=== PATIENT | female | born 1955 | race Asian ===

== ENCOUNTER 2018-11-23 18:02 | Inpatient (IN) | payer OTHER, BC ==
[~2018-11-23] VITALS: Ht 157.5 cm; Wt 60.3 kg
--- NOTE | 2018-11-23 18:22 | NUR ---
PT BROUGHT TO ED BY C/O CHEST PAIN X1 WEEK. PT REPORTS INTERMITTENT SHARP CHEST PAIN TO CENTER OF CHEST WITH EPISODES OF SOB. PER PT HAD LOWER BACK SURGERY 10/13/18 AT [facility] AND WAS TAKING OXYCODONE BY STOPPED TAKING IT APPROX 3 WEEKS AGO. PT DENIES ANY CHEST PAIN AT THIS TIME. PT AA/O X4, RESPS EVEN AND UNLABORED, LUNG SOUNDS CLEAR, SKIN WARM/DRY TO TOUCH, ABDOMEN SOFT/FLAT, NO S/S OF DISTRESS NOTED.
--- NOTE | 2018-11-23 18:30 | NUR ---
MSE COMPLETED BY DR. HARRINGTON.
[2018-11-23 18:32] LABS: BASOPHIL % 0.6 % (0-2)
[2018-11-23 18:33] LABS: PLATELET COUNT 447 x10^3mcL (130-400); RED CELL DISTRIBUTION WIDTH 15.5 % (11.5-14.5)
[2018-11-23 18:36] LABS: CARBON DIOXIDE 27.1 mmol/L (21-32); CHLORIDE SERUM 104 mmol/L (98-107); CREATININE SERUM 0.5 mg/dL (0.6-1.0); GFR1 > 60 mL/min; GLUCOSE SERUM 97 mg/dL (74-106); POTASSIUM SERUM 3.6 mmol/L (3.5-5.1); SODIUM SERUM 139 mmol/L (136-145)
--- NOTE | 2018-11-23 18:40 | NUR ---
PORTABLE X-RAY IN PROGRESS AT BEDSIDE.
[2018-11-23 18:41] LABS: ALBUMIN 3.5 g/dL (3.4-5.0); ALKALINE PHOSPHATASE 108 U/L (46-116); ALT/SGPT 18 U/L (14-59); AST/SGOT 12 U/L (15-37); BILIRUBIN TOTAL 0.36 mg/dL (0.20-1.00); TOTAL PROTEIN, SERUM 7.3 g/dL (6.4-8.2)
--- NOTE | 2018-11-23 19:13 | NUR ---
REPORT GIVEN TO DEON MORENO.
--- NOTE | 2018-11-23 19:14 | NUR ---
REPORT RECEIVED FROM MODESTA MORENO
--- NOTE | 2018-11-23 19:21 | NUR ---
MD HARRINGTON UPDATED THAT PT TAKES AMLODIPINE, LOSARTIN AND ASPIRIN DAILY "FOR MY BLOOD PRESSURE".
--- NOTE | 2018-11-23 20:08 | NUR ---
SON AT BEDSIDE
--- NOTE | 2018-11-23 20:18 | NUR ---
AWAITING RESULTS OF CT ANGIO TO RULE OUT PE. PT MADE AWARE WE ARE WAITING FOR THOSE RESULTS. NO DISTRESS AT THIS TIME
--- NOTE | 2018-11-23 21:02 | NUR ---
REPORT CALLED TO LETTY MORENO
[2018-11-23 21:21] LABS: CHOLESTEROL/HDL RATIO 3.3; MAGNESIUM 2.1 mg/dL (1.8-2.4); PHOSPHOROUS 3.6 mg/dL (2.5-4.9)
--- NOTE | 2018-11-23 21:40 | NUR ---
RECEIVED PT FROM ED VIA [employer], CAME IN DUE TO CHEST PAIN X1 WEEK. AAOX4. DENIES HEADACHE/DIZZINESS. NO SOB NOTED, LUNG SOUNDS CTA. DENIES CHEST PAIN/PRESSURE, SR ON THE MONITOR. DENIES ABDOMINAL DISCOMFORT, LAST BM=11/23/18. ABDOMEN IS SOFT. C/O MILD BURNING SENSATION ON URINATION. C/O 2/10 LOWER BACK PAIN, PT STATED THAT SHE DOES NOT NEED PAIN MEDICATION AT THIS TIME. W/ LOWER BACK SCAR/DARK DISCOLORATION,MECHANICAL ENGINEERING MANAGER. IV SITE ON THE RAC GAUGE 20 IS PATENT AND INTACT. SIDE RAILS UPX2. CALL LIGHT ON REACH. PT'S AND SON AT BEDSIDE. ENDORSED TO PRIMARY NURSE LETTY FOR CONTINUITY OF CARE
--- NOTE | 2018-11-23 21:52 | NUR ---
PT TAKEN UPSTAIRS BY KEN MORENO AND PAULA ARGUELLES AND CONTINUATION OF CARE BY LETTY MORENO FAMILY SENT UPSTAIRS WITH PT. NO DISTRESS UPON TRANSPORT
[2018-11-23 21:57] VITALS: BP 165/77
[2018-11-23] MEDS ORDERED: ROBAXIN-750750 MG PO (22:01)
[2018-11-23] MEDS ORDERED: NOR5 PO (22:01)
[2018-11-23] MEDS ORDERED: HYDROXYZINE HYD25 MG PO (22:01)
[2018-11-23] MEDS ORDERED: LOSARTAN POTASS50 M1 PO (22:02)
[2018-11-23] MEDS ORDERED: ASPIR LOW81 MG PO (22:02)
[2018-11-23 22:09] VITALS: Ht 157.5 cm; Wt 60.3 kg
--- NOTE | 2018-11-23 22:18 | NUR ---
BEDSIDE HANDS OFF AND INTRODUCTION PERFORMED WITH RESOURCE NURSE REYES, PATIENT IS ALERT AND ORIENTED X4, IN NO DISTRESS. PAT IENT AND FAMILY ACQUIANTED TO BEDSIDE EQUIPMENTS AND UNIT POLICIES, CALL LIGHT PLACED IN REACH AND SAFETY/FALL PRECAUTIONS INITIATED.WILL CONTINUE TO MONITOR.
[2018-11-23 22:49] VITALS: BP 144/88
--- NOTE | 2018-11-23 22:49 | NUR ---
PATIENT REQUESTED FOR PILL FOR SLEEP, MEDICATED WITH AMBIEN PER ORDERED. WILL CHECK EFFECTIVENESS.
[2018-11-23 23:12] LABS: UA SPECIFIC GRAVITY <=1.005 (1.005-1.035); microscopic required? YES; urine erythrocyte NEGATIVE (NEGATIVE)
--- NOTE | 2018-11-24 01:00 | NUR ---
PATIENT SLEEPING QUIETLY AND COMFORTABLY THIS TIME NO DISTRESS. WILL CONTINUE TO MONITOR.
[2018-11-24 06:03] VITALS: BP 113/45
--- NOTE | 2018-11-24 06:32 | NUR ---
PATIENT STATED HAD A RESTFUL AND QUIET NIGHT, DENIED CHEST PAINS DURING THE SHIFT, INFORMED PATIENT THIS AM ABOUT TO BE SEEN BY CARDIOLOGY THIS AM AND ECHO WILL BE DONE ALSO.DENIED CHEST PAINS DURING THE SHIFT, NSR ON THE MONITOR. AMBULATORY TO THE BATHROOM WITH STEADY GAIT. VOIDED WITHOUT DIFF. SAFETY PRECAUTIONS MAINTAINED. WILL ENDORSE CONTINUITY OF CARE TO INCOMING NURSE.
[2018-11-24 06:39] LABS: PLATELET COUNT 394 x10^3mcL (130-400)
[2018-11-24 06:48] LABS: CALCIUM 8.7 mg/dL (8.5-10.1); CARBON DIOXIDE 27.4 mmol/L (21-32); CHLORIDE SERUM 106 mmol/L (98-107); CREATININE SERUM 0.6 mg/dL (0.6-1.0); GFR1 > 60 mL/min; GLUCOSE SERUM 87 mg/dL (74-106); POTASSIUM SERUM 3.3 mmol/L (3.5-5.1); SODIUM SERUM 142 mmol/L (136-145)
[2018-11-24 06:55] LABS: RED CELL DISTRIBUTION WIDTH 15.4 % (11.5-14.5)
--- NOTE | 2018-11-24 07:20 | NUR ---
BEDSIDE HANDS OFF REPORT AND INTRODUCTION PERFORMED WITH INCOMING NURSE PEREZ.
--- NOTE | 2018-11-24 07:20 | NUR ---
RECEIVED PT FROM HEAD OF STRATEGY. PT AWAKE, ALERT. A/OX4. PT ON ROOM AIR WITH NO RESP DISTRESS NOTED. LUNGS CTA. IV ACCESS RAC, C/D/I. PT ON TELE #[id number]. DENIES CHEST PAIN AT THIS TIME. PERIPHERAL PULSES PALPABLE, NO EDEMA NOTED. ACTIVE BOWEL SOUNDS NOTED. NO APPARENT ISSUES WITH ELIMINATION AT THIS TIME. PT HAS HEALED SCARS TO LOWER BACK S/P BACK SURGERY ON 10/31/18. PT DENIES PAIN AT THIS TIME. SAFETY MEASURES IN PLACE, BED LOW AND LOCKED. CALL LIGHT WITHIN REACH.
[2018-11-24 09:07] VITALS: BP 119/60
--- NOTE | 2018-11-24 09:20 | NUR ---
MORNING MEDS ADMINISTERED. PT REFUSING BLOOD PRESSURE MEDS BP 119/60 HR 65. PT REFUSES ROBAXIN AT THIS TIME. PT ONLY WANTS ASPRIN. NO ACUTE DISTRESS OR DISCOMFORT NOTED AT THIS TIME. ECHOCARDIOGRAM TECH AT BEDSIDE DOING ECHO. SAFETY MAINTAINED.
[2018-11-24 12:19] VITALS: BP 121/64
--- NOTE | 2018-11-24 12:53 | NUR ---
PT REFUSING ROBAXIN AT THIS TIME. NO ACUTE DISTRESS OR DISCOMFORT NOTED. FAMILY AT BEDSIDE. PT READY TO BE DISCHARGED. AWAITING FURTHER ORDER. PT EDUCATION PROVIDED.
[2018-11-24 13:32] VITALS: BP 121/64
--- NOTE | 2018-11-24 13:50 | NUR ---
DISCHARGE INSTRUCTIONS AND EDUCATION PROVIDED TO PATIENT AND FAMILY. PT VERBALIZED UNDERSTANDING. IV ACCESS REMOVED WITH CATHETER INTACT. PT TOLERATED WELL. PT TO FOLLOW UP WITH PCP. POTASSIUM ADMINISTERED ORDERED FOR K+ 3.3. PT TOLERATED WELL. PT TAKEN TO [employer]IVATE [employer] FOR DISCHARGE.
== END 2018-11-24 13:50 | disposition home or self-care (01) | DRG 206 ==
LOC: ED 18:02 → DU 20:42
PROVIDERS: Internal Medicine; ADMIT Family Medicine
DX: M94.0 Chondrocostal junction syndrome [Tietze] (principal); I10 Essential (primary) hypertension; E78.1 Pure hyperglyceridemia; Z68.24 Body mass index [BMI] 24.0-24.9, adult; Z86.711 Personal history of pulmonary embolism; Z79.01 Long term (current) use of anticoagulants; Z86.718 Personal history of other venous thrombosis and embolism; Z98.890 Other specified postprocedural states
CPT/HCPCS: 83880; J3010; Q0092; Q9967